=== PATIENT | female | born 1985 | race Two or more races ===

== ENCOUNTER 2023-02-09 20:27 | Emergency (ER) | payer MEDICAID ==
[~2023-02-09] VITALS: Ht 160 cm; Wt 60.0 kg
[2023-02-09 21:13] VITALS: BP 124/70; PULSE 75; RESP 16; TEMP 98.3
[2023-02-09] MEDS ORDERED: CEPH-558 PO (22:43)
== END 2023-02-09 23:01 | disposition home or self-care (01) ==
LOC: EMS 20:28
DX: S00.30XD Unspecified superficial injury of nose, subsequent encounter (principal); Z98.890 Other specified postprocedural states; X58.XXXD Exposure to other specified factors, subsequent encounter
CPT/HCPCS: 99283